=== PATIENT | female | born 1980 ===

== ENCOUNTER 2021-11-09 16:10 | Emergency (ER) | payer SELFPAY ==
[~2021-11-09] VITALS: Ht 160 cm; Wt 80.0 kg
--- NOTE | 2021-11-09 16:26 | ED Chest Pain ---
General Chief Complaint: Chest Pain Stated Complaint: CP Source: patient Exam Limitations: no limitations History of Present Illness Date Seen by Provider: Nov 09, 2021 Time Seen by Provider: 16:23 Initial Comments To ER by EMS from [facility] where she presented with reports of dizziness for about 2 weeks as well as chest pain and shortness of breath. She was found to be hypertensive at 220s over 120. She self discontinued her antihypertensives about 6 months ago because of the side effects. EMS gave two sublingual nitroglycerin with resultant drop in blood pressure down to 208/100. However this did take away her chest pain and shortness of breath that she has been having for "several weeks". She does not check her blood pressure at home so she does not know what it normally runs. Timing/Duration: changing over time Severity/Quality: moderate Location: central Radiation: no radiation Activities at Onset: none ASA po BUTTERMAKER CONTINUOUS CHURN: Yes (324 mg of aspirin given a) NTG SL BUTTERMAKER CONTINUOUS CHURN: Yes Allergies and Home Medications Allergies Coded Allergies: No Known Drug Allergies (Unverified , 11/09/21) Patient Home Medication List Home Medication List Reviewed: Yes Amlodipine Besylate (Norvasc) 5 Mg Tablet, 5 MG PO DAILY Prescribed by: IRENE STERLING on 11/09/211816 Review of Systems Review of Systems Constitutional: see HPI EENTM: No Symptoms Reported Respiratory: See HPI, SOA at Rest Cardiovascular: See HPI, Chest Pain Gastrointestinal: No Symptoms Reported Genitourinary: No Symptoms Reported Musculoskeletal: no symptoms reported Skin: no symptoms reported Psychiatric/Neurological: No Symptoms Reported Endocrine: No Symptoms Reported Hematologic/Lymphatic: No Symptoms Reported Past Fbbrdkq-Oonlgw-Tmxvhn Hx Patient Social History Tobacco Use?: No Substance use?: No Alcohol Use?: No Past Medical History Surgery/Hospitalization HX: TUBAL LIGATION 2008. Physical Exam Vital Signs Vital Signs - First Documented Capillary Refill : Height, Weight, BMI Height: '" Weight: lbs. oz. kg; BMI Method: General Appearance: No Apparent Distress, WD/WN, Other (Alert and oriented. Our nurse Carolann speaks Kinyarwanda and translates for us. She denies any chest pain or shortness of breath at this time. Heart rate is 85 sinus no ectopy. Blood pressure 197/121. Her EKG shows sinus rhythm at 89. She has a QTC slightly prolonged at four and 80 ms. She has a little ST depression in lead I, II, aVF, V4, V5, V6.) Neck: Full Range of Motion, Normal Inspection Respiratory: No Accessory Muscle Use, No Respiratory Distress Cardiovascular: Regular Rate, Rhythm, Normal Peripheral Pulses Gastrointestinal: Normal Bowel Sounds, Non Tender, Soft Extremity: Normal Capillary Refill, Normal Inspection Neurologic/Psychiatric: Alert, Oriented x3 Skin: Normal Color, Warm/Dry Progress/Results/Core Measures Results/Orders Lab Results Laboratory Tests Test 11/09/21 14:03 Range/Units White Blood Count 12.7 H 4.3-11.0 10^3/uL Red Blood Count 4.80 3.80-5.11 10^6/uL Hemoglobin 14.1 11.5-16.0 g/dL Hematocrit 42 35-52 % Mean Corpuscular Volume 88 80-99 fL Mean Corpuscular Hemoglobin 29 25-34 pg Mean Corpuscular Hemoglobin Concent 34 32-36 g/dL Red Cell Distribution Width 12.9 10.0-14.5 % Platelet Count 228 130-400 10^3/uL Mean Platelet Volume 12.0 9.0-12.2 fL Immature Granulocyte % (Auto) 0 % Neutrophils (%) (Auto) 52 42-75 % Lymphocytes (%) (Auto) 34 12-44 % Monocytes (%) (Auto) 9 0-12 % Eosinophils (%) (Auto) 5 0-10 % Basophils (%) (Auto) 1 0-10 % Neutrophils # (Auto) 6.7 1.8-7.8 10^3/uL Lymphocytes # (Auto) 4.3 H 1.0-4.0 10^3/uL Monocytes # (Auto) 1.1 H 0.0-1.0 10^3/uL Eosinophils # (Auto) 0.6 H 0.0-0.3 10^3/uL Basophils # (Auto) 0.1 0.0-0.1 10^3/uL Immature Granulocyte # (Auto) 0.0 0.0-0.1 10^3/uL Prothrombin Time 12.3 12.2-14.7 SEC INR Comment 0.9 0.8-1.4 Activated Partial Thromboplast Time 27 24-35 SEC Sodium Level 137 135-145 MMOL/L Potassium Level 2.9 L 3.6-5.0 MMOL/L Chloride Level 102 98-107 MMOL/L Carbon Dioxide Level 21 21-32 MMOL/L Anion Gap 14 5-14 MMOL/L Blood Urea Nitrogen 12 7-18 MG/DL Creatinine 0.63 0.60-1.30 MG/DL Estimat Glomerular Filtration Rate 103 BUN/Creatinine Ratio 19 Glucose Level 84 70-105 MG/DL Calcium Level 8.8 8.5-10.1 MG/DL Corrected Calcium 8.7 8.5-10.1 MG/DL Magnesium Level 1.9 1.6-2.4 MG/DL Total Bilirubin 0.3 0.1-1.0 MG/DL Aspartate Amino Transf (AST/SGOT) 21 5-34 U/L Alanine Aminotransferase (ALT/SGPT) 22 0-55 U/L Alkaline Phosphatase 126 40-136 U/L Myoglobin 17.0 10.0-92.0 NG/ML Troponin I < 0.028 <0.028 NG/ML Total Protein 7.8 6.4-8.2 GM/DL Albumin 4.1 3.2-4.5 GM/DL Serum Test, Qualitative NEGATIVE NEGATIVE My Orders Orders - IRENE STERLING APRN Cbc With Automated Diff (11/09/21 16:21) Magnesium (11/09/21 16:21) Chest 1 View, Ap/Pa Only (11/09/21 16:21) Ekg Tracing (11/09/21 16:21) Comprehensive Metabolic Panel (11/09/21 16:21) Myoglobin Serum (11/09/21 16:21) Protime With Inr (11/09/21 16:21) Partial Thromboplastin Time (11/09/21 16:21) O2 (11/09/21 16:21) Monitor-Rhythm Ecg Trace Only (11/09/21 16:21) Lipid Panel (11/10/21 06:00) Ed Iv/Invasive Line Start (11/09/21 16:21) Troponin I Ol (11/09/21 16:21) Labetalol Injection (Normodyne Injection (11/09/21 16:30) Hcg,Qualitative Serum (11/09/21 16:21) Ct Chest W (11/09/21 16:26) Ct Head Wo (11/09/21 16:28) Potassium Chloride (Tablet) (K Dur Table (11/09/21 16:45) Iohexol Injection (Omnipaque 350 Mg/Ml 1 (11/09/21 17:00) Received Contrast (Hold Metformin- Contr (11/09/21 17:00) Ns (Ivpb) (Sodium Chloride 0.9% Ivpb Bag (11/09/21 17:00) Clonidine Tablet (Catapres Tablet) (11/09/21 17:00) Lisinopril Tablet (Zestril Tablet) (11/09/21 17:00) Amlodipine Tablet (Norvasc Tablet) (11/09/21 17:30) Medications Given in ED Current Medications Medications Dose Ordered Sig/Rodrigo Route Start Time Stop Time Status Last Admin Dose Admin Amlodipine Besylate 5 mg ONCE ONCE PO 11/09/21 17:30 11/09/21 17:31 DC 11/09/21 17:19 5 MG Clonidine HCl 0.1 mg ONCE ONCE PO 11/09/21 17:00 11/09/21 17:01 DC 11/09/21 17:19 0.1 MG Iohexol 100 ml ONCE ONCE IV 11/09/21 17:00 11/09/21 17:01 DC 11/09/21 18:11 74 ML Labetalol HCl 20 mg ONCE ONCE IV 11/09/21 16:30 11/09/21 16:31 DC 11/09/21 16:28 20 MG Potassium Chloride 40 meq ONCE ONCE PO 11/09/21 16:45 11/09/21 16:46 DC 11/09/21 16:51 40 MEQ Sodium Chloride 100 ml ONCE ONCE IV 11/09/21 17:00 11/09/21 17:01 DC 11/09/21 18:11 80 ML Vital Signs/I&O 11/09/21 11/09/21 11/09/21 16:18 16:18 16:18 Temp 36.6 36.6 Pulse 86 86 Resp 20 20 B/P (MAP) 200/122 (148) 200/122 Pulse Ox 98 98 98 O2 Delivery Room Air Room Air Room Air FiO2 98 Departure Communication (Admissions) 0789-blood pressure is down to 158/105 heart rate 73 without ectopy. I will give her a prescription for Norvasc to start at home. We used Carolann BRUCE to help translate. The patient voiced no concerns or questions. She states that she is feeling much better now. Impression Primary Impression: Hypertension Disposition: HOME, SELF-CARE Condition: Stable Departure-Patient Inst. Decision time for Depature: 18:15 Referrals: UNKNOWN (PCP/Family) Primary Care Physician Patient Instructions: High Blood Pressure ED Add. Discharge Instructions: Medication as directed 2. Follow-up with your doctor next week. All discharge instructions reviewed with patient and/or family. Voiced understanding. Scripts Amlodipine Besylate (Norvasc) 5 Mg Tablet 5 MG PO DAILY, #30 TAB Prov: IRENE STERLING APRN 11/09/21 IRENE STERLING APRN Nov 09, 2021 16:26
[2021-11-09] MEDS ORDERED: LABETALOL HCL 20 MG/4 ML VIAL IV ONE (16:30)
[2021-11-09 16:31] LABS: BASOPHILS # (AUTO) 0.1 10^3/uL (0.0-0.1); BASOPHILS % (AUTO) 1 % (0-10); EOSINOPHILS # (AUTO) 0.6 10^3/uL (0.0-0.3); EOSINOPHILS % (AUTO) 5 % (0-10); HEMATOCRIT 42 % (35-52); HEMOGLOBIN 14.1 g/dL (11.5-16.0); LYMPHOCYTES # (AUTO) 4.3 10^3/uL (1.0-4.0); LYMPHOCYTES % (AUTO) 34 % (12-44); MEAN CORPUSCULAR HEMOGLOBIN 29 pg (25-34); MEAN CORPUSCULAR HGB CONC 34 g/dL (32-36); MEAN CORPUSCULAR VOLUME 88 fL (80-99); MONOCYTES # (AUTO) 1.1 10^3/uL (0.0-1.0); MONOCYTES % (AUTO) 9 % (0-12); NEUTROPHILS # (AUTO) 6.7 10^3/uL (1.8-7.8); NEUTROPHILS % (AUTO) 52 % (42-75); PLATELET COUNT 228 10^3/uL (130-400); WHITE BLOOD COUNT 12.7 10^3/uL (4.3-11.0)
[2021-11-09 16:35] LABS: ALBUMIN 4.1 GM/DL (3.2-4.5)
[2021-11-09 16:36] LABS: POTASSIUM 2.9 MMOL/L (3.6-5.0)
[2021-11-09 16:37] LABS: CALCIUM 8.8 MG/DL (8.5-10.1)
[2021-11-09 16:38] LABS: TOTAL PROTEIN 7.8 GM/DL (6.4-8.2)
[2021-11-09 16:40] LABS: BILIRUBIN,TOTAL 0.3 MG/DL (0.1-1.0)
[2021-11-09 16:42] LABS: CREATININE SERUM 0.63 MG/DL (0.60-1.30)
[2021-11-09 16:43] LABS: INR 0.9 (0.8-1.4); PROTHROMBIN TIME PATIENT 12.3 SEC (12.2-14.7)
[2021-11-09 16:45] LABS: MAGNESIUM 1.9 MG/DL (1.6-2.4)
[2021-11-09] MEDS ORDERED: KCL 20 MEQ TAB (K-DUR) PO ONE (16:45)
--- NOTE | 2021-11-09 16:55 | Diagnostic Imaging Report ---
INDICATION: Chest pain. FINDINGS: There is mild elevation of the right hemidiaphragm. Overall heart size is within normal limits. Pulmonary vessels are within expected range. There is no pneumothorax or significant pleural fluid. IMPRESSION: Elevation of the right hemidiaphragm without other evidence of acute abnormality. Dictated by: Dictated on workstation # [id number]
[2021-11-09] MEDS ORDERED: lisINopril 20 MG (PRINIVIL) TABLET PO ONE (17:00)
[2021-11-09] MEDS ORDERED: NS 100 ML (IVPB) BAG IV ONE (17:00)
[2021-11-09] MEDS ORDERED: IOHEXOL 350 MG/ML 100 ML (OMNIPAQUE 350) VIAL IV ONE (17:00)
[2021-11-09] MEDS ORDERED: cloNIDine 0.1 MG (CATAPRES) TAB PO ONE (17:00)
[2021-11-09] MEDS ORDERED: HOLD METFORMIN - RECEIVED CONTRAST 20 ML VIAL IV SCH (17:00)
[2021-11-09] MEDS ORDERED: amLODIPine 5 MG (NORVASC) TAB PO ONE (17:30)
--- NOTE | 2021-11-09 18:09 | Diagnostic Imaging Report ---
PROCEDURE: CT head without contrast. TECHNIQUE: Multiple contiguous axial images were obtained through the brain without the use of intravenous contrast. Auto Exposure Controls were utilized during the CT exam to meet ALARA standards for radiation dose reduction. DATE: November 09, 2021. COMPARISON: None. INDICATION: 41-year-old female, dizziness. Left arm tingling. FINDINGS: The ventricles and cerebral spinal fluid spaces are of normal size and configuration for the patient's age. There is no mass effect or midline shift. There is no acute intracranial hemorrhage. There is no abnormal extra-axial fluid collection. The visualized portions of the paranasal sinuses, mastoid air cells and middle ears are well aerated. IMPRESSION: No identified acute intracranial abnormality. Dictated by: Dictated on workstation # [id number]
--- NOTE | 2021-11-09 18:12 | Diagnostic Imaging Report ---
PROCEDURE: CT chest with contrast only. TECHNIQUE: Multiple contiguous axial images were obtained through the chest after administration of intravenous contrast. Auto Exposure Controls were utilized during the CT exam to meet ALARA standards for radiation dose reduction. DATE: November 09, 2021. COMPARISON: Chest radiograph November 09, 2021. INDICATION: 41-year-old female, chest pain. FINDINGS: There is respiratory motion artifact. There is no identified pulmonary nodule. There is no lung mass. There is no identified focal airspace consolidation. There is no pneumothorax. There is no pleural effusion. The central airways are patent. There is no identified central pulmonary embolus. There is limited evaluation for peripheral pulmonary emboli. The heart is not enlarged. There is no pericardial effusion. There is no identified abnormally enlarged mediastinal, hilar or axillary lymph node which meets size criteria for adenopathy. Limited evaluation of the imaged portions of the upper abdomen is unremarkable. There are degenerative changes of the spine. There is no identified acute bony abnormality. IMPRESSION: CT chest: 1. No identified acute cardiopulmonary abnormality. Dictated by: Dictated on workstation # [id number]
[2021-11-09] MEDS ORDERED: AMLO5TAB4 PO (18:17)
[2021-11-09 18:25] VITALS: BP 157/102
== END 2021-11-09 18:25 | disposition home or self-care (01) ==
LOC: EDUNIT# 16:10 → ER 16:11
DX: I10 Essential (primary) hypertension (principal)
CPT/HCPCS: 36415; 70450; 71045; 71260; 80053; 83735; 83874; 84484; 84703; 85025; 85610; 85730; 93041

== ENCOUNTER → 2022-09-18 | Outpatient (CLI) | payer OTHER ==
[~2022-09-18] MED LIST: AMLO5TAB4 PO
== END ==
LOC: CARD 09:00
PROVIDERS: ATTEND Internal Medicine Cardiovascular Disease
DX: I07.1 Rheumatic tricuspid insufficiency (principal)
CPT/HCPCS: 93306

== ENCOUNTER → 2022-11-07 | Outpatient (CLI) | payer OTHER ==
[~2022-11-07] MED LIST changes: +CATHETER FLUSH 10 ML SYR IVP PRN
[2022-11-07 09:13] VITALS: BP 155/105
--- NOTE | 2022-11-07 11:12 | NUCLEAR STRESS TEST ---
TREADMILL NUCLEAR STRESS TEST Date of procedure: 11/07/2022. Primary care provider: Unknown. Admitting physician: Noe Lawton Jr., MD. INDICATION: Abnormal electrocardiogram. BASELINE ELECTROCARDIOGRAM: Sinus rhythm with nonspecific ST-T wave changes. STRESS TEST PROCEDURE: The patient was exercised for a total of 5 minutes and 17 seconds of the standard [place] protocol achieving a maximum MET level of 7.1. The resting heart rate was 81 bpm and the peak heart rate was 160 bpm, which represents 90% of the maximum predicted heart rate. The resting blood pressure was 155/105 mmHg and the peak blood pressure was 203/106 mmHg. This represents a normal heart rate and a hypertensive blood pressure response to exercise with resting hypertension. The test was stopped due to target heart rate attained. There was no chest discomfort during the test. There were no arrhythmias during the test. There were no significant stress induced electrocardiogram changes. The patient exhibited fair exercise capacity for age. NUCLEAR PROCEDURE: The patient was administered 10.9 mCi of intravenous technetium 99m Tetrofosmin at rest for the rest images. The patient was subsequently administered 32.5 mCi of intravenous technetium 99 M Tetrofosmin at peak stress for the stress images. Following an appropriate wait after each injection, imaging was obtained. The images were subsequently processed and reformatted in the usual views. Gated imaging was obtained. The image quality was adequate with a mild degree of gastrointestinal attenuation artifact. CT attenuation correction was used as a adjunct to standard imaging. Both the corrected and uncorrected images were reviewed for interpretation. NUCLEAR RESULTS: There was normal myocardial perfusion in all segments without evidence of infarction or ischemia. There was normal left ventricular chamber size with an end-diastolic volume of 54 mL and an end-systolic volume of 17 mL. There was no evidence of transient ischemic dilatation. The TID ratio was 0.93. There was normal wall motion in all segments with a calculated ejection fraction of 69%. IMPRESSION: 1. Normal heart rate and a hypertensive blood pressure response to exercise with resting hypertension. 2. There was no chest discomfort, arrhythmias, or electrocardiogram changes during the test. 3. The patient exhibited fair exercise capacity for age at 5 minutes and 17 seconds of the [place] protocol. 4. There was normal myocardial perfusion in all segments without evidence of infarction or ischemia. 5. There was normal wall motion in all segments with a calculated ejection fraction of 69%. Certain portions of this document may have been dictated utilizing voice recognition technology. Inherent to this technology, typographical and grammati minh errors may exist. As much as I am diligent to identify and correct these mistakes, some errors may remain in the document. NOE LAWTON JR, MD Nov 07, 2022 11:12
== END ==
LOC: CARD 08:30
PROVIDERS: ATTEND Internal Medicine Cardiovascular Disease
DX: R94.31 Abnormal electrocardiogram [ECG] [EKG] (principal)
CPT/HCPCS: 78452; 93017; A9502

== ENCOUNTER 2022-11-27 08:52 | Outpatient (CLI) | payer SELFPAY ==
[~2022-11-27] VITALS: Ht 160 cm; Wt 79.4 kg
[~2022-11-27 08:52] MED LIST changes: -CATHETER FLUSH 10 ML SYR IVP PRN
== END 2022-11-27 10:23 ==
LOC: PREOP 08:52
PROVIDERS: ATTEND Surgery
DX: Z01.818 Encounter for other preprocedural examination (principal); K21.9 Gastro-esophageal reflux disease without esophagitis

== ENCOUNTER 2022-12-03 10:42 | Day surgery (SDC) | payer OTHER ==
[~2022-12-03] VITALS: Ht 160 cm; Wt 79.4 kg
[2022-12-03] MEDS ORDERED: LACTATED RINGERS 1,000 ML IV STA (10:43)
[2022-12-03] MEDS ORDERED: HURRICAINE EXT TUBE (BENZOCAINE) XX PRN (10:45)
[2022-12-03] MEDS ORDERED: HURRICAINE EXT TUBE (BENZOCAINE) ONE (10:57)
[2022-12-03] MEDS ORDERED: LACTATED RINGERS 1,000 ML IV ONE (10:57)
[2022-12-03 11:00] VITALS: BP 135/99
[2022-12-03] MEDS ORDERED: MIDAZOLAM 2 MG/2 ML (VERSED) VIAL ONE (11:17)
[2022-12-03] MEDS ORDERED: PROPOFOL INJECTION 50 ML IV ONE (11:17)
--- NOTE | 2022-12-03 11:27 | Progress Note-Pre Operative ---
Pre-Operative Progress Note Date of Available H&P: Nov 20, 2022 Date H&P Reviewed: Dec 03, 2022 Time H&P Reviewed: 11:27 History & Physical: H&P Reviewed, Patient Examed, No changes noted Pre-Operative Diagnosis: gerd SHANTA LOOMIS DO Dec 03, 2022 11:27
[2022-12-03 11:35] VITALS: BP 110/74
[2022-12-03 11:40] VITALS: BP 116/75
--- NOTE | 2022-12-03 11:44 | Discharge Inst-Simple/Standard ---
Discharge Inst-Standard Patient Instructions/Follow Up Plan of Care/Instructions/FU: 2 weeks Rosie Activity as Tolerated: Yes Discharge Diet: Regular Diet SHANTA LOOMIS DO Dec 03, 2022 11:44
[2022-12-03 11:45] VITALS: BP 117/79
[2022-12-03 11:50] VITALS: BP 117/81
--- NOTE | 2022-12-03 11:59 | Anesthesia-General Post-Op ---
MAC Patient Condition Mental Status/LOC: Same as Preop Cardiovascular: Satisfactory Nausea/Vomiting: Absent Respiratory: Satisfactory Pain: Controlled Complications: Absent Post Op Complications Complications None Follow Up Care/Instructions Patient Instructions None needed. Anesthesiology Discharge Order Discharge Order Patient is doing well, no complaints, stable vital signs, no apparent adverse anesthesia problems. No complications reported per nursing. SAHRA LYLES CRNA Dec 03, 2022 11:59
[2022-12-03 12:07] VITALS: BP 137/97
--- NOTE | 2022-12-03 19:21 | OPERATIVE REPORT ---
DATE OF SERVICE: 12/03/2022 PREOPERATIVE DIAGNOSIS: Gastroesophageal reflux disease. POSTOPERATIVE DIAGNOSIS: Normal EGD. PROCEDURE: EGD with biopsy. CHANGE ANALYST: Shanta Velez DO. ANESTHESIA: Per [employer] WORKER. ESTIMATED BLOOD LOSS: None. COMPLICATIONS: None. INDICATIONS: The patient is a 42-year-old female who is with GERD symptoms. She understands the risks and benefits of procedure and wishes to proceed. Consent was signed in chart. DESCRIPTION OF PROCEDURE: The patient was taken to endoscopy suite, placed in left lateral recumbent position. Timeout was performed. The scope was inserted in the mouth, down the esophagus, stomach, into the duodenum without difficulty. No polyps, masses or ulcerations. Scope was slowly retracted back in the stomach where it was further insufflated. No polyps, masses or ulcerations. Scope was retroflexed, noting no other pathology. Scope was then returned to its normal position. Biopsy of the antrum was obtained. The scope was retracted until the distal esophagus. Biopsy of the GE junction was obtained. No polyps, masses or ulcerations. Scope was retracted back until completely removed, noting no other pathology. The patient tolerated the procedure well with no complications. She was taken to recovery room in stable condition. RECOMMENDATIONS: The patient will follow up in the office in 2 weeks to go over biopsy results. Depending upon pathology, we will consider working up the gallbladder. Also, would consider PPI management depending on pathology results . Job ID: [id number] DocumentID: [id number] Dictated Date: 12/03/2022 11:46:22 General Engineering Teacher Date: 12/03/2022 19:20:00 Dictated By: SHANTA VELEZ DO [facility]
== END 2022-12-03 12:30 | disposition home or self-care (01) ==
LOC: ENDO 10:42
PROVIDERS: ATTEND Surgery
DX: K21.00 Gastro-esophageal reflux disease with esophagitis, without bleeding (principal); K29.70 Gastritis, unspecified, without bleeding; E66.9 Obesity, unspecified; Z68.31 Body mass index [BMI] 31.0-31.9, adult; N64.4 Mastodynia; Z79.899 Other long term (current) drug therapy; Z28.310 Unvaccinated for COVID-19
CPT/HCPCS: 84703